=== PATIENT | female | born 1940 | race Caucasian/White ===

== ENCOUNTER 2016-10-09 22:31 | Emergency (ER) | payer OTHER, MEDICARE ==
[~2016-10-09] VITALS: Ht 162.6 cm; Wt 64.3 kg
[~2016-10-09 22:31] MED LIST: ASPIRIN81 M2 PO; Aspirin E.C. PO; Pravachol PO; Tenormin PO
[2016-10-10] MEDS ORDERED: CLINDAMYCIN HC300 MG PO (00:55)
[2016-10-10 01:06] VITALS: BP 143/81
== END 2016-10-10 01:10 | disposition home or self-care (01) ==
LOC: EME 22:31
DX: L03.116 Cellulitis of left lower limb (principal); I10 Essential (primary) hypertension
CPT/HCPCS: 93971; 99281; 99284

== ENCOUNTER 2017-09-15 12:14 | Inpatient (IN) | payer OTHER, MEDICARE ==
[~2017-09-15] VITALS: Ht 167.6 cm; Wt 67.6 kg
[~2017-09-15 12:14] MED LIST changes: +CLINDAMYCIN HC300 MG PO
[2017-09-15 14:34] LABS: APPEARANCE SL.HAZY ((CLEAR)); BILIRUBIN NEGATIVE; BLOOD SMALL; COLOR YELLOW ((YELLOW)); GLUCOSE (STRIP) NEGATIVE; KETONES NEGATIVE; LEUKOCYTES SMALL; NITRITE NEGATIVE; PROTEIN (STRIP) NEGATIVE; SPECIFIC GRAVITY 1.018 (1.000-1.030); UROBILINOGEN 0.2 MG/DL (0.2-1.0)
[2017-09-15 14:40] LABS: BASOPHIL (%) 0.5 % (0-1); BASOPHIL COUNT 0.1 K/uL (0-0.1); EOSINOPHIL COUNT 0.2 K/uL (0-0.3); HEMATOCRIT 38.7 % (36.0-46.0); HEMOGLOBIN 12.9 G/DL (11.9-15.5); IMMATURE GRANULOCYTE (%) 0.5 % (0.0-0.7); MCH 28.9 PG (29.0-34.0); MCHC 33.3 G/DL (30.0-36.0); MCV 86.6 FL (83-99); MONOCYTE (%) 8.3 % (3-12); MONOCYTE COUNT 1.3 K/uL (0-0.8); NEUTROPHIL (%) 76.7 % (45-76); NEUTROPHIL COUNT 11.7 K/uL (1.8-6.4); PLATELET COUNT 190 K/uL (156-360); RBC DIS.WIDTH-SD 40.7 % (39-53); RED BLOOD COUNT 4.47 M/uL (3.80-5.20); WHITE BLOOD COUNT 15.2 K/uL (4.1-10.2)
[2017-09-15 14:44] LABS: BACTERIA RARE /HPF; EPITHELIAL CELLS RARE /HPF; MUCUS TRACE /LPF; RED BLOOD CELLS 0-5 /HPF (0-5)
[2017-09-15 14:57] LABS: ALBUMIN 3.9 g/dL (3.2-4.8)
[2017-09-15 14:58] LABS: CHLORIDE 102 mEq/L (99-109); POTASSIUM 4.2 mEq/L (3.7-5.4); SODIUM 136 mEq/L (136-147)
[2017-09-15 15:00] LABS: GLUCOSE 97 mg/dL (70-99); TOTAL PROTEIN 6.7 g/dL (6.4-8.3)
[2017-09-15 15:01] LABS: TROP-I INTERPRETATION NEGATIVE; TROPONIN-I 0.01 ng/mL (0.0-0.30)
[2017-09-15 15:02] LABS: TOTAL BILIRUBIN 0.4 mg/dL (0.0-1.0)
[2017-09-15 15:03] LABS: ALKALINE PHOSPHATASE 58 IU/L (3-129)
[2017-09-15 15:04] LABS: GFR ESTIMATE (CALCULATED) 11 mL/min/
[2017-09-15 15:05] LABS: AST (GOT) 18 IU/L (2-34); UREA NITROGEN (BUN) 58 mg/dL (9-23)
[2017-09-15 15:06] LABS: ALT (GPT) 13 IU/L (3-49)
[2017-09-15] MEDS ORDERED: PRAVASTATIN SOD40 MG PO (16:51)
[2017-09-15] MEDS ORDERED: MYCOSTATIN 100,60 ML PO (16:51)
[2017-09-15] MEDS ORDERED: AMLODIPINE BESYL5 MG PO (16:51)
[2017-09-15] MEDS ORDERED: TRIAMTERENE-HC1 EACH PO (16:51)
[2017-09-15] MEDS ORDERED: LISINOPRIL20 MG PO (16:52)
[2017-09-15] MEDS ORDERED: MEMANTINE HCL5 MG PO (16:52)
[2017-09-15] MEDS ORDERED: CITALOPRAM HBR10 MG PO (16:52)
[2017-09-15] MEDS ORDERED: MECLIZINE HCL25 MG PO (16:52)
[2017-09-16 04:30] VITALS: BP 105/66
[2017-09-16 05:17] LABS: HEMATOCRIT 30.5 % (36.0-46.0); MCH 28.8 PG (29.0-34.0); MCHC 32.5 G/DL (30.0-36.0); MCV 88.7 FL (83-99); PLATELET COUNT 147 K/uL (156-360); WHITE BLOOD COUNT 9.7 K/uL (4.1-10.2)
[2017-09-16 05:19] LABS: HEMOGLOBIN 9.9 G/DL (11.9-15.5); RED BLOOD COUNT 3.44 M/uL (3.80-5.20)
[2017-09-16 06:05] LABS: CHLORIDE 109 MEQ/L (99-109); GLUCOSE 86 mg/dL (70-99); POTASSIUM 4.3 MEQ/L (3.7-5.4); SODIUM 138 MEQ/L (136-147); UREA NITROGEN (BUN) 50 mg/dL (9-23)
[2017-09-16 06:17] LABS: CREATININE 2.6 MG/DL (0.6-1.3); GFR ESTIMATE (CALCULATED) 19 mL/min/
[2017-09-16 07:51] VITALS: BP 106/67
[2017-09-16 11:02] VITALS: BP 138/68
[2017-09-16 15:22] VITALS: BP 101/63
[2017-09-16 19:37] VITALS: BP 100/70
[2017-09-17 00:15] VITALS: BP 106/70
[2017-09-17 04:22] VITALS: BP 98/86
[2017-09-17 07:58] VITALS: BP 130/59
[2017-09-17 10:51] LABS: HEMATOCRIT 37.3 % (36.0-46.0); MCH 28.3 PG (29.0-34.0); MCHC 31.9 G/DL (30.0-36.0); MCV 88.8 FL (83-99); PLATELET COUNT 176 K/uL (156-360); RBC DIS.WIDTH-SD 42.5 % (39-53); WHITE BLOOD COUNT 9.1 K/uL (4.1-10.2)
[2017-09-17 10:52] LABS: HEMOGLOBIN 11.9 G/DL (11.9-15.5)
[2017-09-17 11:07] LABS: CHLORIDE 109 MEQ/L (99-109); GLUCOSE 123 mg/dL (70-99); POTASSIUM 4.7 MEQ/L (3.7-5.4); SODIUM 141 MEQ/L (136-147)
[2017-09-17 11:09] LABS: CREATININE 1.2 MG/DL (0.6-1.3); GFR ESTIMATE (CALCULATED) 46 mL/min/; UREA NITROGEN (BUN) 24 mg/dL (9-23)
[2017-09-17 15:21] VITALS: BP 155/72
[2017-09-17 19:51] VITALS: BP 133/64
[2017-09-17 23:36] VITALS: BP 126/62
[2017-09-18 06:18] LABS: HEMATOCRIT 31.9 % (36.0-46.0); HEMOGLOBIN 10.3 G/DL (11.9-15.5); MCH 28.5 PG (29.0-34.0); MCHC 32.3 G/DL (30.0-36.0); MCV 88.4 FL (83-99); PLATELET COUNT 157 K/uL (156-360); RBC DIS.WIDTH-SD 42.3 % (39-53); RED BLOOD COUNT 3.61 M/uL (3.80-5.20); WHITE BLOOD COUNT 9.2 K/uL (4.1-10.2)
[2017-09-18 06:27] LABS: CHLORIDE 109 MEQ/L (99-109); GFR ESTIMATE (CALCULATED) 57 mL/min/; POTASSIUM 4.4 MEQ/L (3.7-5.4); SODIUM 142 MEQ/L (136-147); UREA NITROGEN (BUN) 16 mg/dL (9-23)
[2017-09-18 06:31] LABS: GLUCOSE 81 mg/dL (70-99)
[2017-09-18 08:09] VITALS: BP 142/76
[2017-09-18] MEDS ORDERED: TRAZODONE HCL50 MG PO (10:32)
[2017-09-18] MEDS ORDERED: TRAMADOL HCL50 MG PO (10:32)
== END 2017-09-18 12:52 | disposition home or self-care (01) | DRG 683 ==
LOC: EME 12:14 → EDOF 16:17 → 3EAST 16:17 → ENRESERV 16:29 → CANRESERV 17:20 → ENRESERV 22:00 → EDOF 09-16 00:25 → ENRESERV 09-16 01:17 → CANRESERV 09-16 01:17 → ENRESERV 09-16 02:39 → 3EAST 09-16 03:31
PROVIDERS: Emergency Medicine; Internal Medicine
DX: N17.9 Acute kidney failure, unspecified (principal); T46.4X5A Adverse effect of angiotensin-converting-enzyme inhibitors, initial encounter; I95.9 Hypotension, unspecified; E87.1 Hypo-osmolality and hyponatremia; E86.0 Dehydration; I48.91 Unspecified atrial fibrillation; F03.90 Unspecified dementia, unspecified severity, without behavioral disturbance, psychotic disturbance, mood disturbance, and anxiety; E78.5 Hyperlipidemia, unspecified; G43.909 Migraine, unspecified, not intractable, without status migrainosus; R07.9 Chest pain, unspecified; R41.82 Altered mental status, unspecified; K80.20 Calculus of gallbladder without cholecystitis without obstruction; M81.0 Age-related osteoporosis without current pathological fracture; I10 Essential (primary) hypertension; Z66 Do not resuscitate; Z87.891 Personal history of nicotine dependence; Z86.73 Personal history of transient ischemic attack (TIA), and cerebral infarction without residual deficits
CPT/HCPCS: 70450; 74176; 76770; 80048; 80053; 81003; 83605; 83930; 84484; 85025; 85027; 87040; 87086; 93005; 99281; 99285; J0696; J1644; J2060; J7030; J7040; J7050

== ENCOUNTER 2017-12-16 09:40 | Emergency (ER) | payer OTHER, MEDICARE ==
[~2017-12-16] VITALS: Ht 172.7 cm; Wt 63.1 kg
[~2017-12-16 09:40] MED LIST changes: +AMLODIPINE BESYL5 MG PO; +CITALOPRAM HBR10 MG PO; +LISINOPRIL20 MG PO; +MECLIZINE HCL25 MG PO; +MEMANTINE HCL5 MG PO; +MYCOSTATIN 100,60 ML PO; +PRAVASTATIN SOD40 MG PO; +TRAMADOL HCL50 MG PO; +TRAZODONE HCL50 MG PO; +TRIAMTERENE-HC1 EACH PO
[2017-12-16 10:04] LABS: BASOPHIL (%) 0.5 % (0-1); BASOPHIL COUNT 0.1 K/uL (0-0.1); EOSINOPHIL (%) 1.1 % (0-5); EOSINOPHIL COUNT 0.1 K/uL (0-0.3); HEMATOCRIT 38.5 % (36.0-46.0); HEMOGLOBIN 12.6 G/DL (11.9-15.5); IMMATURE GRANULOCYTE (%) 0.4 % (0.0-0.7); LYMPHOCYTE (%) 14.2 % (15-42); LYMPHOCYTE COUNT 1.6 K/uL (1.0-2.8); MCH 27.1 PG (29.0-34.0); MCHC 32.7 G/DL (30.0-36.0); MCV 82.8 FL (83-99); MONOCYTE (%) 8.5 % (3-12); MONOCYTE COUNT 0.9 K/uL (0-0.8); NEUTROPHIL (%) 75.3 % (45-76); NEUTROPHIL COUNT 8.2 K/uL (1.8-6.4); PLATELET COUNT 300 K/uL (156-360); RBC DIS.WIDTH-CV 13.4 % (11.8-14.6); RBC DIS.WIDTH-SD 40.3 % (39-53); RED BLOOD COUNT 4.65 M/uL (3.80-5.20); WHITE BLOOD COUNT 10.9 K/uL (4.1-10.2)
[2017-12-16 10:15] LABS: ALBUMIN 3.7 g/dL (3.2-4.8); CHLORIDE 100 mEq/L (99-109); POTASSIUM 3.4 mEq/L (3.7-5.4); SODIUM 139 mEq/L (136-147)
[2017-12-16 10:16] LABS: MAGNESIUM 1.8 mg/dL (1.3-2.7)
[2017-12-16 10:18] LABS: GLUCOSE 103 mg/dL (70-99); TOTAL PROTEIN 6.8 g/dL (6.4-8.3)
[2017-12-16 10:19] LABS: TOTAL BILIRUBIN 0.7 mg/dL (0.0-1.0)
[2017-12-16 10:21] LABS: ALKALINE PHOSPHATASE 168 IU/L (3-129); CREATININE 1.3 mg/dL (0.6-1.3); GFR ESTIMATE (CALCULATED) 42 mL/min/
[2017-12-16 10:22] LABS: UREA NITROGEN (BUN) 22 mg/dL (9-23)
[2017-12-16 10:23] LABS: AST (GOT) 89 IU/L (2-34)
[2017-12-16 10:24] LABS: ALT (GPT) 169 IU/L (3-49)
[2017-12-16 10:25] LABS: TROP-I INTERPRETATION NEGATIVE; TROPONIN-I 0.01 ng/mL (0.0-0.30)
[2017-12-16 10:53] LABS: LIPASE 27 U/L (1.0-51.0)
[2017-12-16] MEDS ORDERED: RANITIDINE HCL150 MG PO (14:38)
[2017-12-16] MEDS ORDERED: HYDROCHLOROTH12.5 M3 PO (14:38)
[2017-12-16] MEDS ORDERED: ADVIL200 MG PO (14:39)
[2017-12-16] MEDS ORDERED: BENZONATATE100 MG PO (14:40)
[2017-12-16 16:39] VITALS: BP 166/93
== END 2017-12-16 17:00 | disposition home or self-care (01) ==
LOC: EME 09:40
PROVIDERS: Emergency Medicine
DX: K80.20 Calculus of gallbladder without cholecystitis without obstruction (principal); R07.9 Chest pain, unspecified; R79.89 Other specified abnormal findings of blood chemistry; F03.90 Unspecified dementia, unspecified severity, without behavioral disturbance, psychotic disturbance, mood disturbance, and anxiety; I10 Essential (primary) hypertension; F32.9 Major depressive disorder, single episode, unspecified; Z88.0 Allergy status to penicillin
CPT/HCPCS: 71045; 74176; 76705; 80053; 83690; 83735; 84484; 85025; 93005; 99281; 99284; J1200; J2060